=== PATIENT | female | born 1940 | race Caucasian/White ===

== ENCOUNTER → 2016-09-10 | Outpatient (REF) ==
[~2016-09-10] MED LIST: /GLYB5TA OR; ACET-654 PO; ACET65TA OR; ACET65TA PR; ALDA50TA2 OR; ASPI325T OR; AUGMENTIN PO; BACITAB3 PO; BENI20TA11 PO; BISA10SU2 RE; CARV3.12 PO; CARV6.25 PO; CLOTR1CR TOP; COUM1TAB14 PO; CYTO25TA PO; DEMA10TA OR; DOCU100C PO; ENOX40SY SC; FLUC100T PO; FURO1TAB15 PO; GLUC1000 OR; GLUCOVANCE PO; INSUDET SC; INSULANT SC; INSURSD SC; IPRASOL4 NEB; ISOS30TA4 PO; LEVO100T5 PO; LOPR100T OR; MILKSUS PO; MOXI1TAB PO; NYSTPOW4 TOP; PERC5TAB8 OR; PERC7.5T8 OR; PRADAXA PO; PREPCRE PR; PROP20TA2 PO; PROT1TAB2 PO; SIMV20TA2 PO; SYNT125T PO; SYNT50TA PO; VALT500T OR; VITAD1000T PO; WARF4TAB51 PO; ZEST20TA4 PO
[2016-09-10 09:49] LABS: INR 2.77
[2016-09-10 10:26] LABS: ALBUMIN 2.5 GM/DL (3.2-5.2); CALCIUM LEVEL 8.1 MG/DL (8.8-10.2); CREATININE FOR GFR 3.78 MG/DL (0.55-1.02); GLOMERULAR FILTRATION RATE 12.3 (>39); PHOSPHORUS LEVEL 3.1 MG/DL (2.5-4.9); POTASSIUM SERUM 3.8 MEQ/L (3.5-5.1)
[2016-09-10 17:52] LABS: ALBUMIN 2.7 GM/DL (3.2-5.2); CALCIUM LEVEL 8.4 MG/DL (8.8-10.2); CREATININE FOR GFR 4.21 MG/DL (0.55-1.02); GLOMERULAR FILTRATION RATE 10.9 (>39); PHOSPHORUS LEVEL 2.7 MG/DL (2.5-4.9); POTASSIUM SERUM 3.7 MEQ/L (3.5-5.1)
== END ==
LOC: SKLAB7 07:00
PROVIDERS: ATTEND Family Medicine
DX: I48.91 Unspecified atrial fibrillation (principal)

== ENCOUNTER → 2016-09-17 | Outpatient (REF) ==
[2016-09-17 09:13] LABS: INR 2.59
== END ==
LOC: SKLAB7 07:46
PROVIDERS: ATTEND Family Medicine
DX: I48.91 Unspecified atrial fibrillation (principal)

== ENCOUNTER → 2016-09-24 | Outpatient (REF) | payer MEDICARE, OTHER ==
[2016-09-24 08:31] LABS: INR 3.17
== END ==
LOC: SKLAB7 08:00
PROVIDERS: ATTEND Family Medicine
DX: I48.91 Unspecified atrial fibrillation (principal)

== ENCOUNTER → 2016-10-01 | Outpatient (REF) | payer MEDICARE, OTHER ==
[2016-10-01 08:50] LABS: INR 3.13
== END ==
LOC: SKLAB7 08:00
PROVIDERS: ATTEND Family Medicine
DX: I48.91 Unspecified atrial fibrillation (principal)

== ENCOUNTER → 2016-10-08 | Outpatient (REF) | payer MEDICARE, OTHER ==
[2016-10-08 08:44] LABS: INR 3.48
== END ==
LOC: SKLAB7 08:00
PROVIDERS: ATTEND Family Medicine
DX: I48.91 Unspecified atrial fibrillation (principal)

== ENCOUNTER → 2016-10-15 | Outpatient (REF) | payer MEDICARE, OTHER ==
[2016-10-15 08:12] LABS: INR 3.59
== END ==
LOC: SKLAB7 06:58
PROVIDERS: ATTEND Family Medicine
DX: I48.91 Unspecified atrial fibrillation (principal)

== ENCOUNTER → 2016-10-22 | Outpatient (REF) | payer MEDICARE, OTHER ==
[2016-10-22 09:37] LABS: INR 2.82
== END ==
LOC: SKLAB7 08:00
PROVIDERS: ATTEND Family Medicine
DX: I48.91 Unspecified atrial fibrillation (principal)

== ENCOUNTER → 2016-10-29 | Outpatient (REF) | payer MEDICARE, OTHER ==
[2016-10-29 08:27] LABS: INR 3.15
== END ==
LOC: SKLAB7 14:11
PROVIDERS: ATTEND Family Medicine
DX: I48.91 Unspecified atrial fibrillation (principal)

== ENCOUNTER → 2016-11-05 | Outpatient (REF) | payer MEDICARE, OTHER ==
[2016-11-05 09:28] LABS: INR 3.61
== END ==
LOC: SKLAB7 08:00
PROVIDERS: ATTEND Family Medicine
DX: I48.91 Unspecified atrial fibrillation (principal)

== ENCOUNTER → 2016-11-12 | Outpatient (REF) | payer MEDICARE, OTHER ==
[2016-11-12 08:22] LABS: INR 3.57
== END ==
LOC: SKLAB7 08:00
PROVIDERS: ATTEND Family Medicine
DX: I48.91 Unspecified atrial fibrillation (principal)

== ENCOUNTER → 2016-11-17 | Outpatient (REF) | payer MEDICARE, OTHER | LOC: SKLAB7 16:40 | PROVIDERS: ATTEND Family Medicine | DX: E11.29 Type 2 diabetes mellitus with other diabetic kidney complication (principal) ==

== ENCOUNTER → 2016-11-19 | Outpatient (REF) | payer MEDICARE, OTHER ==
[2016-11-19 09:05] LABS: INR 1.52
[2016-11-19 09:17] LABS: FREE T4 1.85 NG/DL (0.76-1.46); THYROXINE (T4) 9.3 UG/DL (4.5-12.0)
== END ==
LOC: SKLAB7 07:00
PROVIDERS: ATTEND Family Medicine
DX: I48.91 Unspecified atrial fibrillation (principal); E03.9 Hypothyroidism, unspecified

== ENCOUNTER → 2016-11-26 | Outpatient (REF) | payer MEDICARE, OTHER ==
[2016-11-26 09:44] LABS: INR 2.43
== END ==
LOC: SKLAB7 10:11
PROVIDERS: ATTEND Family Medicine
DX: I48.91 Unspecified atrial fibrillation (principal); Z79.01 Long term (current) use of anticoagulants; Z79.899 Other long term (current) drug therapy

== ENCOUNTER → 2016-12-03 | Outpatient (REF) | payer MEDICARE, OTHER ==
[2016-12-03 09:22] LABS: INR 2.27
== END ==
LOC: SKLAB7 09:50
PROVIDERS: ATTEND Family Medicine
DX: I48.91 Unspecified atrial fibrillation (principal)

== ENCOUNTER → 2016-12-10 | Outpatient (REF) | payer MEDICARE, OTHER ==
[2016-12-10 08:36] LABS: INR 1.6
== END ==
LOC: SKLAB7 07:00
PROVIDERS: ATTEND Family Medicine
DX: I48.91 Unspecified atrial fibrillation (principal)

== ENCOUNTER → 2016-12-24 | Outpatient (REF) | payer MEDICARE, OTHER ==
[2016-12-24 08:27] LABS: INR 2.1
== END ==
LOC: SKLAB7 07:00
PROVIDERS: ATTEND Family Medicine
DX: I48.91 Unspecified atrial fibrillation (principal)

== ENCOUNTER → 2016-12-31 | Outpatient (REF) | payer MEDICARE, OTHER ==
[2016-12-31 08:39] LABS: INR 2.45
== END ==
LOC: SKLAB7 07:00
PROVIDERS: ATTEND Family Medicine
DX: I48.91 Unspecified atrial fibrillation (principal)

== ENCOUNTER → 2017-01-07 | Outpatient (REF) | payer MEDICARE, OTHER ==
[~2017-01-07] MED LIST changes: +ACET65SU PR; +ARTI99.0 OU; +DULC10SU2 PR; +ENEMENE6 PR; +GLUC1KIT IM; +HUMA100I3 SC; +INSULADS SC; +IPRASOL4 IN; +LEVO150T7 PO; +PANT40TA2 PO; +TRAM50TA2 PO; +ULTR50TA PO; +WARF-20 PO
[2017-01-07 08:52] LABS: INR 2.62
== END ==
LOC: SKLAB7 08:22
PROVIDERS: ATTEND Family Medicine
DX: I48.91 Unspecified atrial fibrillation (principal)

== ENCOUNTER → 2017-01-13 | Outpatient (REF) | payer MEDICARE, OTHER | LOC: SKLAB7 08:00 | PROVIDERS: ATTEND Family Medicine | DX: E11.9 Type 2 diabetes mellitus without complications (principal) ==

== ENCOUNTER 2017-01-14 02:57 | Emergency (ER) | payer MEDICARE, OTHER ==
[~2017-01-14 02:57] MED LIST changes: -ACET65SU PR; -ARTI99.0 OU; -DULC10SU2 PR; -ENEMENE6 PR; -GLUC1KIT IM; -HUMA100I3 SC; -INSULADS SC; -IPRASOL4 IN; -LEVO150T7 PO; -PANT40TA2 PO; -TRAM50TA2 PO; -ULTR50TA PO; -WARF-20 PO
[2017-01-14] MEDS ORDERED: ULTR50TA PO (03:20)
[2017-01-14] MEDS ORDERED: FUROSEMIDE 40 MG/4 ML VIAL (J1940) IV ONE (03:45)
[2017-01-14 03:58] LABS: INR 4.71
--- NOTE | 2017-01-14 04:10 | REPUSA ---
CLINICAL HISTORY: Neck pain. TECHNIQUE: Multiple axial images were obtained through the cervical spine. Images were also reconstru cted in coronal and sagittal planes. The study was performed without IV contrast. COMMENTS: There is no fracture or spondylolisthesis visualized. The paraspinal soft tissues are unremarkable. T here are no lytic or blastic lesions. There is evidence of mild multilevel disk disease, demonstrated by osteophytosis and endplate scleros is. IMPRESSION: 1. No fracture or spondylolisthesis. Thank you for your kind referral of this patient.
[2017-01-14 04:13] LABS: DIFF SLIDE NUMBER 120; MEAN CORPUSCULAR HEMOGLOBIN 32.4 pg (27.0-33.0); MEAN CORPUSCULAR HGB CONC 30.2 g/dl (32.0-36.5); RED CELL DISTRIBUTION WIDTH 14.2 % (11.5-14.5); WHITE BLOOD COUNT 11.3 K/mm3 (4.0-10.0)
[2017-01-14 04:23] LABS: ABG BASE EXCESS -2.9 (-2.0-2.0); ABG HCO3 28.2 MEQ/L (22.0-26.0); ABG PARTIAL PRESSURE O2 57.8 mmHg (75.0-100.0); ABG STANDARD HCO3 21.8 MEQ/L (22.0-26.0)
[2017-01-14 04:24] LABS: ABG PARTIAL PRESSURE CO2 90.5 mmHg (35.0-45.0); ABG pH (ARTERIAL) 7.112 UNITS (7.350-7.450)
[2017-01-14 04:39] LABS: PLATELET COUNT, AUTOMATED 97 k/mm3 (150-450)
[2017-01-14 04:40] LABS: CREATININE FOR GFR 3.8 MG/DL (0.55-1.02); GLOMERULAR FILTRATION RATE 12.2 (>39); POTASSIUM SERUM 4.3 MEQ/L (3.5-5.1); THYROXINE (T4) 9.3 UG/DL (4.5-12.0)
[2017-01-14 04:43] LABS: BASOPHILS 1 % (0-4); EOSINOPHILS 1 % (0-5)
[2017-01-14 04:44] LABS: HYPOCHROMASIA 1+
[2017-01-14] MEDS ORDERED: NOREPINEPHRINE BITARTRATE 16 MG in D5W 500 ML IV SCH (04:45)
[2017-01-14 04:48] VITALS: BP 62/40
[2017-01-14] MEDS ORDERED: HUMA100I3 SC (04:51)
[2017-01-14] MEDS ORDERED: TRAM50TA2 PO (04:51)
[2017-01-14] MEDS ORDERED: INSULADS SC (04:51)
[2017-01-14] MEDS ORDERED: GLUC1KIT IM (04:51)
[2017-01-14] MEDS ORDERED: WARF-20 PO (05:04)
[2017-01-14] MEDS ORDERED: LEVO150T7 PO (05:04)
[2017-01-14] MEDS ORDERED: ACET65SU PR (05:04)
[2017-01-14] MEDS ORDERED: ENEMENE6 PR (05:04)
[2017-01-14] MEDS ORDERED: ARTI99.0 OU (05:04)
[2017-01-14] MEDS ORDERED: DULC10SU2 PR (05:04)
[2017-01-14] MEDS ORDERED: PANT40TA2 PO (05:06)
[2017-01-14] MEDS ORDERED: IPRASOL4 IN (05:07)
[2017-01-14] MEDS ORDERED: CARV3.12 PO (05:07)
--- NOTE | 2017-01-14 09:50 | REP ---
PORTABLE CHEST: AP portable view of the chest is performed. Comparison 05/04/2016. There is cardiomegaly. There are bilateral lower lung infiltrates. There is calcification and ectasia of the thoracic aorta. Right central venous catheter is again seen as well as a left single lead pacemaker. There are multiple sternal wires and mediastinal clips present. IMPRESSION: Cardiomegaly. Bilateral lower lung infiltrates. Signed by Richie Washburn MD 01/14/2017 04:18 P
== END 2017-01-14 08:06 | disposition expired ==
LOC: EDBD 02:57 → M ED 04:24
DX: J96.92 Respiratory failure, unspecified with hypercapnia (principal); N18.6 End stage renal disease; I51.7 Cardiomegaly; R91.8 Other nonspecific abnormal finding of lung field; Z95.0 Presence of cardiac pacemaker; I70.0 Atherosclerosis of aorta; I77.810 Thoracic aortic ectasia; Z79.4 Long term (current) use of insulin; Z79.01 Long term (current) use of anticoagulants; Z79.899 Other long term (current) drug therapy; Z88.8 Allergy status to other drugs, medicaments and biological substances
CPT/HCPCS: 36415; 36600; 51702; 70450; 71010; 72125; 80048; 82803; 84436; 84443; 84479; 85025; 85610; 85730; 87040; 94660; 96374; 99285; J1940

== ENCOUNTER → 2017-01-14 | Outpatient (REF) | payer MEDICARE, OTHER | LOC: SKLAB7 07:00 | PROVIDERS: ATTEND Family Medicine | DX: I48.91 Unspecified atrial fibrillation (principal) ==